=== PATIENT | male | born 1945 | race Caucasian/White ===

== ENCOUNTER 2019-06-07 08:44 | Day surgery (SDC) | payer MEDICARE, OTHER ==
[~2019-06-07] VITALS: Ht 177.8 cm; Wt 81.6 kg
[~2019-06-07 08:44] MED LIST: CARDURA2 MG PO; TRIAMTERENE-HC1 EAC3 PO
[2019-06-07 09:18] LABS: HEMATOCRIT 41.5 % (42.0-54.0); HEMOGLOBIN 14.1 g/dL (13.5-17.5); MCH 32.3 pg (26.0-34.0); MEAN PLATELET VOLUME 8.2 fL (7.4-10.4); RBC 4.37 10x6/uL (4.20-6.10); RDW 13.3 % (11.5-14.5); WBC 6.1 10x3/uL (4.8-10.8)
[2019-06-07 09:32] LABS: ANION GAP 10.3 mmol/L (8-16); CALCIUM 9.9 mg/dL (8.5-10.1); CARBON DIOXIDE 30.2 mmol/L (21.0-32.0); CREATININE - SERUM 1.1 mg/dL (0.6-1.3); POTASSIUM - SERUM 3.5 mmol/L (3.5-5.1)
[2019-06-07] MEDS ORDERED: ZYRTEC10 MG PO (10:59)
[2019-06-07] MEDS ORDERED: FISH OIL 1,0001 CA1 PO (11:00)
[2019-06-07] MEDS ORDERED: OMEPRAZOLE20 M1 PO (11:00)
[2019-06-07] MEDS ORDERED: I-CAPS PO (11:01)
[2019-06-07 11:13] VITALS: BP 163/73; Ht 177.8 cm; Wt 81.6 kg
--- NOTE | 2019-06-07 19:41 | NUR ---
1530 IV REMOVED AND INSTRUCTIONS GIVEN. 1550 PT D/C HOME
--- NOTE | 2019-06-14 09:15 | HP ---
PATIENT: NNAMDI EDWARDS MEDICAL RECORD: [id number] ACCOUNT: [id number] LOCATION:[facility] ED : 46 ADMISSION DATE: 06/07/19 PCP: NNAMDI MENJIVAR HISTORY AND PHYSICAL EXAMINATION PREOPERATIVE HISTORY AND PHYSICAL HISTORY OF PRESENT ILLNESS: Mr. Edwards is a 73-year-old male with chronic sinonasal problems and obstruction. He is being admitted for septoplasty and sinus surgery and nasal polypectomy. PAST MEDICAL HISTORY: Includes prostate cancer. PAST SURGICAL HISTORY: Includes hernia repair, surgery for prostate cancer, knee replacement, back fusion. CURRENT MEDICATIONS: Include triamterene, atorvastatin, Zyrtec, doxazosin. ALLERGIES: PENICILLIN AND SULFA. PHYSICAL EXAMINATION: GENERAL: Healthy-appearing. FACE: Normal, symmetric, no lesions. EYES: Sclerae and conjunctivae are normal. EARS: Canals and TMs normal. NOSE: Severe left septal deviation. Has a large polyp obstructing the left posterior nasal cavity. On CT, he has mucosal thickening in both maxillary sinuses and ethmoid sinus. No frontal recess. ORAL CAVITY AND OROPHARYNX: Temperature is midline. Palate is normal. NECK: No masses, no adenopathy. CHEST: Clear. CARDIOVASCULAR: Regular rate and rhythm, no murmur. EXTREMITIES: Normal. IMPRESSION: Nasal obstruction, septal deviation, nasal polyposis, and pansinusitis. PLAN: Septoplasty, bilateral inferior turbinate reduction, nasal polypectomy, bilateral middle meatal antrostomies, and bilateral ethmoidectomy. 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
--- NOTE | 2019-06-14 09:15 | OP ---
PATIENT NAME: NNAMDI EDWARDS MEDICAL RECORD: [id number] :47 LOCATION:[facility] ADMISSION DATE: SURGEON: QUINN PAYNE MD DATE OF OPERATION: 06/07/2019 PREOPERATIVE DIAGNOSES: Nasal obstruction, bilateral nasal polyposis, pansinusitis, septal deviation, and turbinate hypertrophy. POSTOPERATIVE DIAGNOSES: Nasal obstruction, bilateral nasal polyposis, pansinusitis, septal deviation, and turbinate hypertrophy. PROCEDURES: Septoplasty, bilateral endoscopic ethmoidectomy, bilateral middle meatal antrostomy with removal of large polyps in both maxillary sinuses, endoscopic nasal polypectomy, bilateral inferior turbinate reduction. SURGEON: Quinn Payne MD ANESTHESIA: General orotracheal. BLOOD LOSS: Less than 10 cc. SPECIMENS: Polyps from right and left nasal cavity. NASAL PACKING: Rodriguez splints only. COMPLICATIONS: None. DISPOSITION: Recovery stable. PROCEDURE NOTE: The patient was brought to the operating room and placed in supine position, sedated and intubated by anesthesia. Both sides of the nose were examined and the inferior turbinates, septum, floor of the nose and root of the middle turbinate were injected bilaterally with a total of less than 2 cc of 1% lidocaine with 1:100,000 epinephrine with a long 27-gauge needle. Then, 2 Afrin pledgets were placed in each side of the nose. The table was turned 90 degrees. He was positioned, prepped, and draped in usual fashion for nasal surgery. All the Afrin pledgets were removed. Then, using a 0-degree scope, the nose we reexamined. He does have a severe left septal deviation. He had nasal polyps bilaterally really totally obstructing the posterior nasal cavity on both sides emanating from the middle meatus, superior meatus, and middle turbinate. The right side was addressed first with more room there. Large polyps were removed using a straight biting forceps from the middle meatus posteriorly and the superior meatus until the nasopharynx was visualized. There was a large polyp filling the nasopharynx that was from the left side that was not addressed there. Then, the microdebrider was used to trim out the polyps from the middle meatus and the superior meatus to expose normal anatomy and remove all the polyps. The lateral nasal wall was collapsed laterally and appeared consistent with some chronic maxillary sinus collapse. The sinus was opened and entered with a curved olive tip suction. Thick secretions but not infected appearance removed from that sinus and then a large polyp was removed. This created a nicely aerated maxillary sinus, really was not hardly any bleeding. Afrin pledget was placed in the middle meatus. OPERATIVE REPORT [id number] NNAMDI EDWARDS The left side was addressed. Again sharp septal deviation to the left side, the inferior middle turbinates were normal, but just massive nasal polyps. Again, a straight biting forceps was used to grab a really large polyps, the largest antrochoanal polyp was divided, but could be removed from the left side was pushed back in the nasopharynx and removed through the right side of the nose. Then, a microdebrider was inserted and used to take down all the polyps in the middle meatus, superior meatus. Maxillary sinus was entered and again huge polyp was removed from the maxillary sinus, suctioned out. There really was not any infectious material and that sinus looked clear, again hardly bleeding. All the Afrin pledgets were removed. The inferior turbinates were medialized. The inferior redundant portion was taken down with a [place] microdebrider. Suction cautery was used to stop any bleeding and then both outfractured with a [place] elevator. Then, a left-side [place] incision was made. Ipsilateral mucoperichondrial flap was elevated. A big spur on the left side was isolated and removed with a chisel. Then, the bony cartilaginous junction was disarticulated with a caudal. Contralateral posterior mucoperichondrial flap was elevated. Scissors were used to make a cut above and below. The huge sharp bony spur that was sticking into the middle turbinate, middle meatus that was removed that allowed the septum to fall to the midline. A 4-0 chromic was used to suture the [place] incision. Then, both sides of the nose were examined, everything was inspected. Inferior turbinates were outfractured nicely. There was no bleeding there. The middle meatuses were cleaned out with suction. The nasopharynx was cleaned. Rodriguez splints with mupirocin ointment were placed in both sides of the nose and sutured to the anterior membranous septum with a 2-0 Prolene on a [place] needle. He is awakened, extubated, and transported to recovery in good condition. No complications. 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
== END 2019-06-07 15:50 | disposition home or self-care (01) ==
LOC: D.OPS 08:44 → D.PAN 09:45 → D.OPS 09:45 → D.PAN 09:55 → D.OPS 10:00 → D.PAN 10:25 → D.OPS 11:00 → D.PAN 11:00 → D.OPS 11:30
PROVIDERS: Anesthesiology; ATTEND Otolaryngology
DX: J34.89 Other specified disorders of nose and nasal sinuses (principal); J33.9 Nasal polyp, unspecified; J32.4 Chronic pansinusitis; J34.2 Deviated nasal septum; J34.3 Hypertrophy of nasal turbinates